=== PATIENT | male | born 1960 | race Hispanic/Latino ===

== ENCOUNTER 2022-01-07 19:05 | Emergency (ER) | payer SELFPAY ==
[2022-01-07] MEDS ORDERED: Ibuprofen 800 MG TAB ONE (20:41)
== END 2022-01-07 22:48 | disposition home or self-care (01) ==
LOC: ERS 19:05
DX: J10.1 Influenza due to other identified influenza virus with other respiratory manifestations (principal); M79.10 Myalgia, unspecified site; I10 Essential (primary) hypertension; E11.9 Type 2 diabetes mellitus without complications; Z79.84 Long term (current) use of oral hypoglycemic drugs; Z79.899 Other long term (current) drug therapy
CPT/HCPCS: 87081; 87430; 87804; 99283

== ENCOUNTER 2023-01-06 09:55 | Emergency (ER) | payer SELFPAY ==
[2023-01-06 10:36] LABS: #Basophils 0.1 thou/uL (0.0-0.2); #Eosinphils 0.2 thou/uL (0.0-0.7); #Lymphocytes 1.7 thou/uL (1.20-3.40); #Monocytes 0.5 thou/uL (0.11-0.59); #Neutrophils 2.8 thou/uL (1.40-6.50); %Eosinophils 4.1 % (0.0-10.0); %Lymphocytes 31.9 % (21.0-51.0); %Monocytes 8.7 % (0.0-10.0); %Neutrophils 54.3 % (42.0-75.0); Hemoglobin 14.3 g/dL (14.0-18.0); Mean Corpuscular HGB CONC 34.2 g/dL (32.0-36.0); Mean Corpuscular Hemoglobin 31.5 pg (27.0-31.0); Mean Corpuscular Volume 92.1 fl (78.0-98.0); Mean Platelet Volume 10.5 fL (7.4-10.4); Platelet Count 183 10x3/uL (130-400); RBC Distribution Width 11.6 % (11.5-14.5); Red Blood Cell (RBC) Count 4.53 mill/uL (4.70-6.10); White Blood Cell (WBC) Count 5.2 10x3/uL (4.8-10.8)
[2023-01-06 10:57] LABS: ALT (SGPT) 54 U/L (8-55); AST (SGOT) 36 U/L (5-34); Albumin 3.9 g/dL (3.4-4.8); Alkaline Phosphatase 82 U/L (40-110); Anion Gap 8 mmol/L (10-20); BUN (Urea Nitrogen) 17 mg/dL (8.4-25.7); Bilirubin, Total 0.6 mg/dL (0.2-1.2); Calc. Creatinine Clearance 0 mL/min (70-130); Calcium 8.9 mg/dL (7.8-10.44); Carbon Dioxide 26 mmol/L (23-31); Chloride 103 mmol/L (98-107); Estimated GFR 99; Globulin 3.3 g/dL (2.4-3.5); Glucose 213 mg/dL (80-115); Potassium 4.4 mmol/L (3.5-5.1); Protein, Total 7.2 g/dL (5.8-8.1); Sodium 133 mmol/L (136-145)
[2023-01-06 12:40] LABS: Bacteria/HPF None Seen HPF (None Seen); Bilirubin Negative (Negative); Blood, Urine Negative (Negative); Clarity Clear (Clear); Glucose, Urine (Dipstick) Greater than 1000 mg/dL (Negative); Ketone, Urine Negative (Negative); Leukocyte Negative Leu/uL (Negative); Nitrite Negative (Negative); Protein, Urine (Dipstick) 50 mg/dL (Neg-Trace); RBC/HPF 0-3 HPF (0-3); Specific Gravity, Urine 1.027 (1.002-1.036); Squamous Epithelial None Seen HPF (0-3); Urobilinogen Normal mg/dL (Less than 2); WBC/HPF 0-3 HPF (0-3); pH, Urine 5.5 (5.0-9.0)
[2023-01-06] MEDS ORDERED: cefTRIAXone\\ROCEPHIN 1 GM VIAL ONE (13:36)
[2023-01-06] MEDS ORDERED: Lidocaine 1% MPF 2 ML VIAL ONE (13:37)
== END 2023-01-06 13:58 | disposition home or self-care (01) ==
LOC: ERS 09:55
DX: E11.65 Type 2 diabetes mellitus with hyperglycemia (principal); L08.9 Local infection of the skin and subcutaneous tissue, unspecified; I10 Essential (primary) hypertension
CPT/HCPCS: 36415; 80053; 81003; 81015; 85025; 93005; 96372; J0696

== ENCOUNTER 2023-07-13 10:05 | Inpatient (IN) | payer SELFPAY ==
[2023-07-13 10:55] LABS: #Eosinphils 0.3 thou/uL (0.0-0.7); #Monocytes 0.6 thou/uL (0.11-0.59); #Neutrophils 4.2 thou/uL (1.40-6.50); %Basophils 0.6 % (0.0-1.0); %Eosinophils 4.2 % (0.0-10.0); %Lymphocytes 22.9 % (21.0-51.0); %Monocytes 9.3 % (0.0-10.0); %Neutrophils 62.8 % (42.0-75.0); Hematocrit 35.9 % (42.0-52.0); Hemoglobin 12.6 g/dL (14.0-18.0); Mean Corpuscular HGB CONC 35.1 g/dL (32.0-36.0); Mean Corpuscular Hemoglobin 30.7 pg (27.0-31.0); Mean Corpuscular Volume 87.3 fl (78.0-98.0); Mean Platelet Volume 12.4 fL (7.4-10.4); Platelet Count 207 10x3/uL (130-400); RBC Distribution Width 11.6 % (11.5-14.5); Red Blood Cell (RBC) Count 4.11 mill/uL (4.70-6.10); White Blood Cell (WBC) Count 6.7 10x3/uL (4.8-10.8)
[2023-07-13 11:17] LABS: ALT (SGPT) 17 U/L (8-55); AST (SGOT) 14 U/L (5-34); Albumin 3.4 g/dL (3.4-4.8); Alkaline Phosphatase 119 U/L (40-110); Anion Gap 14 mmol/L (10-20); BUN (Urea Nitrogen) 20 mg/dL (8.4-25.7); Bilirubin, Total 0.5 mg/dL (0.2-1.2); Calc. Creatinine Clearance 0 mL/min (70-130); Calcium 9.2 mg/dL (7.8-10.44); Carbon Dioxide 23 mmol/L (23-31); Chloride 94 mmol/L (98-107); Estimated GFR 90; Globulin 3.6 g/dL (2.4-3.5); Potassium 4.2 mmol/L (3.5-5.1); Sodium 127 mmol/L (136-145)
[2023-07-13 11:21] LABS: Glucose 450 mg/dL (80-115)
[2023-07-13] MEDS ORDERED: cefTRIAXone (ROCEPHIN) 1 GM VIAL ONE (11:58)
[2023-07-13 12:26] LABS: Actual Bicarbonate (HCO3v) 26.4 mEq/L (22-28); Base Excess 1.6 mEq/L (-2.0 to +3.0); Calcium, Ionized (venous) 1.16 mmol/L (1.16-1.32); Chloride (VBG) 96 mmol/L (98-106); Hematocrit-VBG 42 % (42.0-52.0); Hemoglobin (Hb) 14.2 g/dL (13.1-17.2); Potassium (VBG) 4.62 mmol/L (3.70-5.30); Sodium 131.5 mmol/L (133-146); pH (venous) 7.415 (7.32-7.43)
[2023-07-13 14:36] VITALS: BMI 21.9
[2023-07-13] MEDS ORDERED: Dextrose 50% Abboject 50 ML SYRINGE SLOW IVP PRN (14:42)
[2023-07-13] MEDS ORDERED: Dextrose 5% in Water 1,000 ML IV PRN (14:42)
[2023-07-13] MEDS ORDERED: HumaLOG 300 UNITS/3 ML VIAL SC PRN (14:42)
[2023-07-13] MEDS ORDERED: Glucagon 1 MG/ML KIT IM PRN (14:42)
[2023-07-13] MEDS ORDERED: Acetaminophen 325 MG TAB PO PRN (14:43)
[2023-07-13] MEDS ORDERED: Ondansetron PF 4 MG/2 ML Vial IVP PRN (14:43)
[2023-07-13] MEDS ORDERED: Ondansetron ODT 4 MG TAB PO PRN (14:43)
[2023-07-13] MEDS ORDERED: Lorazepam 1 MG TAB PO PRN (15:10)
[2023-07-13] MEDS ORDERED: Lorazepam 2 MG/ML VIAL IM PRN (15:10)
[2023-07-13] MEDS ORDERED: hydrALAZINE 20 MG/ML VIAL SLOW IVP PRN (15:11)
[2023-07-13] MEDS ORDERED: Electrolyte Replacement Protocol 1 EACH FS SCH (15:15)
[2023-07-13 15:21] LABS: Hemoglobin A1c 13.9 % (4.0-6.0)
[2023-07-13] MEDS: metFORMIN 500 MG TAB PO SCH (16:56)
[2023-07-13] MEDS: HumaLOG 300 UNITS/3 ML VIAL SC PRN (16:56)
[2023-07-13] MEDS: Thiamine HCl 200 MG/2 ML VIAL SLOW IVP SCH (16:56)
[2023-07-13 17:19] LABS: Magnesium 1.9 mg/dL (1.6-2.6)
[2023-07-13] MEDS: Folic Acid 1 MG TAB PO SCH (20:54)
[2023-07-13] MEDS: Multivit, Therapeutic 1 TAB PO SCH (20:54)
[2023-07-13] MEDS ORDERED: Magnesium 2 GM/50 ML(in water) 2 GM in Premix Bag 1 BAG IVPB SCH (21:00)
[2023-07-13] MEDS: Doxycycline 100 MG in Sodium Chloride 0.9% 100 ML IVPB SCH (21:25)
[2023-07-14] MEDS: HumaLOG 300 UNITS/3 ML VIAL SC PRN ×3 (05:31→16:35)
[2023-07-14 06:58] LABS: #Eosinphils 0.4 thou/uL (0.0-0.7); #Monocytes 0.6 thou/uL (0.11-0.59); #Neutrophils 4.3 thou/uL (1.40-6.50); %Basophils 0.5 % (0.0-1.0); %Eosinophils 5.5 % (0.0-10.0); %Lymphocytes 29.7 % (21.0-51.0); %Monocytes 8.1 % (0.0-10.0); %Neutrophils 56.1 % (42.0-75.0); Hematocrit 36.1 % (42.0-52.0); Hemoglobin 12.8 g/dL (14.0-18.0); Mean Corpuscular HGB CONC 35.5 g/dL (32.0-36.0); Mean Corpuscular Hemoglobin 30.3 pg (27.0-31.0); Mean Corpuscular Volume 85.5 fl (78.0-98.0); Mean Platelet Volume 12.3 fL (7.4-10.4); Platelet Count 200 10x3/uL (130-400); RBC Distribution Width 11.5 % (11.5-14.5); Red Blood Cell (RBC) Count 4.22 mill/uL (4.70-6.10); White Blood Cell (WBC) Count 7.6 10x3/uL (4.8-10.8)
[2023-07-14 07:25] LABS: Anion Gap 10 mmol/L (10-20); BUN (Urea Nitrogen) 15 mg/dL (8.4-25.7); Calc. Creatinine Clearance 91 mL/min (70-130); Carbon Dioxide 26 mmol/L (23-31); Chloride 102 mmol/L (98-107); Estimated GFR 101; Glucose 211 mg/dL (80-115); Potassium 3.7 mmol/L (3.5-5.1); Sodium 134 mmol/L (136-145)
[2023-07-14] MEDS: metFORMIN 500 MG TAB PO SCH ×2 (08:41→16:26)
[2023-07-14] MEDS: Doxycycline 100 MG in Sodium Chloride 0.9% 100 ML IVPB SCH ×2 (08:42→20:53)
[2023-07-14] MEDS: cefTRIAXone\\ROCEPHIN 1 GM in Sodium Chloride 0.9% 100 ML IVPB SCH (12:03)
[2023-07-14] MEDS ORDERED: Pioglitazone HCl 45 MG TAB PO SCH (13:15)
[2023-07-14] MEDS ORDERED: Lorazepam 1 MG TAB PO PRN (15:10)
[2023-07-14] MEDS: Thiamine HCl 200 MG/2 ML VIAL SLOW IVP SCH (16:26)
[2023-07-14] MEDS: Folic Acid 1 MG TAB PO SCH (20:54)
[2023-07-14] MEDS: Multivit, Therapeutic 1 TAB PO SCH (20:54)
[2023-07-14] MEDS ORDERED: hydrOXYzine 25 MG TAB PO PRN (23:05)
[2023-07-15 07:53] LABS: #Basophils 0.1 thou/uL (0.0-0.2); #Eosinphils 0.4 thou/uL (0.0-0.7); #Monocytes 0.7 thou/uL (0.11-0.59); %Basophils 0.7 % (0.0-1.0); %Eosinophils 5.3 % (0.0-10.0); %Lymphocytes 30.6 % (21.0-51.0); %Monocytes 8.9 % (0.0-10.0); %Neutrophils 54.4 % (42.0-75.0); Hematocrit 36.3 % (42.0-52.0); Hemoglobin 12.7 g/dL (14.0-18.0); Mean Corpuscular Hemoglobin 30.6 pg (27.0-31.0); Mean Corpuscular Volume 87.5 fl (78.0-98.0); Mean Platelet Volume 12.6 fL (7.4-10.4); Platelet Count 211 10x3/uL (130-400); RBC Distribution Width 11.6 % (11.5-14.5); Red Blood Cell (RBC) Count 4.15 mill/uL (4.70-6.10); White Blood Cell (WBC) Count 7.4 10x3/uL (4.8-10.8)
[2023-07-15 08:09] LABS: Anion Gap 12 mmol/L (10-20); BUN (Urea Nitrogen) 14 mg/dL (8.4-25.7); Calc. Creatinine Clearance 82 mL/min (70-130); Carbon Dioxide 23 mmol/L (23-31); Chloride 103 mmol/L (98-107); Estimated GFR 98; Glucose 179 mg/dL (80-115); Sodium 134 mmol/L (136-145)
[2023-07-15] MEDS: Pioglitazone HCl 45 MG TAB PO SCH (09:43)
[2023-07-15] MEDS: Doxycycline 100 MG in Sodium Chloride 0.9% 100 ML IVPB SCH ×2 (09:44→19:51)
[2023-07-15] MEDS: metFORMIN 500 MG TAB PO SCH ×2 (09:44→16:56)
[2023-07-15] MEDS: HumaLOG 300 UNITS/3 ML VIAL SC PRN ×2 (09:47→12:22)
[2023-07-15] MEDS: cefTRIAXone\\ROCEPHIN 1 GM in Sodium Chloride 0.9% 100 ML IVPB SCH (12:21)
[2023-07-15] MEDS ORDERED: Lorazepam 1 MG TAB PO PRN (15:10)
[2023-07-15] MEDS: Thiamine HCl 200 MG/2 ML VIAL SLOW IVP SCH (16:57)
[2023-07-15] MEDS: Folic Acid 1 MG TAB PO SCH (19:51)
[2023-07-15] MEDS: Multivit, Therapeutic 1 TAB PO SCH (19:51)
[2023-07-16 06:59] LABS: #Eosinphils 0.4 thou/uL (0.0-0.7); #Monocytes 0.8 thou/uL (0.11-0.59); #Neutrophils 3.4 thou/uL (1.40-6.50); %Basophils 0.6 % (0.0-1.0); %Lymphocytes 34.7 % (21.0-51.0); %Monocytes 11.3 % (0.0-10.0); %Neutrophils 48.1 % (42.0-75.0); Hematocrit 35.6 % (42.0-52.0); Hemoglobin 12.5 g/dL (14.0-18.0); Mean Corpuscular HGB CONC 35.1 g/dL (32.0-36.0); Mean Corpuscular Hemoglobin 30.9 pg (27.0-31.0); Mean Corpuscular Volume 87.9 fl (78.0-98.0); Mean Platelet Volume 11.8 fL (7.4-10.4); Platelet Count 228 10x3/uL (130-400); RBC Distribution Width 11.5 % (11.5-14.5); Red Blood Cell (RBC) Count 4.05 mill/uL (4.70-6.10); White Blood Cell (WBC) Count 7.2 10x3/uL (4.8-10.8)
[2023-07-16 07:24] LABS: Anion Gap 12 mmol/L (10-20); BUN (Urea Nitrogen) 15 mg/dL (8.4-25.7); Calc. Creatinine Clearance 75 mL/min (70-130); Carbon Dioxide 26 mmol/L (23-31); Chloride 102 mmol/L (98-107); Estimated GFR 96; Glucose 166 mg/dL (80-115); Sodium 136 mmol/L (136-145)
[2023-07-16 07:44] VITALS: BP 133/76; TEMP 98.3
[2023-07-16] MEDS: Pioglitazone HCl 45 MG TAB PO SCH (08:21)
[2023-07-16] MEDS: Doxycycline 100 MG in Sodium Chloride 0.9% 100 ML IVPB SCH (08:21)
[2023-07-16] MEDS: metFORMIN 500 MG TAB PO SCH (08:21)
[2023-07-16] MEDS ORDERED: Thiamine 100 MG TAB PO SCH (09:00)
[2023-07-16] MEDS: cefTRIAXone\\ROCEPHIN 1 GM in Sodium Chloride 0.9% 100 ML IVPB SCH (12:01)
[2023-07-16] MEDS ORDERED: Lorazepam 0.5 MG TAB PO PRN (15:10)
== END 2023-07-16 13:20 | disposition home or self-care (01) | DRG 603 ==
LOC: ERS 10:05 → T4-B 13:40 → OBSVTOIN 07-14 15:08
PROVIDERS: ADMIT Family Medicine; ATTEND Specialist
DX: L03.116 Cellulitis of left lower limb (principal); E11.9 Type 2 diabetes mellitus without complications; I10 Essential (primary) hypertension; F10.10 Alcohol abuse, uncomplicated; Z79.84 Long term (current) use of oral hypoglycemic drugs; Z90.49 Acquired absence of other specified parts of digestive tract
CPT/HCPCS: 36415; 36416; 80048; 80053; 82010; 82805; 83036; 83735; 85025; 85652; 86140; 87040; 96375; 96376; 97139; G0378; J0696; J1815; J3411; J3475; J3490

== ENCOUNTER 2024-08-22 19:15 | Inpatient (IN) | payer SELFPAY ==
[2024-08-22 20:09] LABS: #Basophils 0.07 10x3/uL (0.0-0.2); %Basophils 0.8 % (0.0-1.0); %Eosinophils 4.9 % (0.0-10.0); %Lymphocytes 23.5 % (21.0-51.0); %Monocytes 8.1 % (0.0-10.0); %Neutrophils 62.4 % (42.0-75.0); Hematocrit 31.3 % (42.0-52.0); Hemoglobin 10.9 g/dL (14.0-18.0); Mean Corpuscular HGB CONC 34.8 g/dL (32.0-36.0); Mean Corpuscular Hemoglobin 30.8 pg (27.0-31.0); Mean Corpuscular Volume 88.4 fL (78.0-98.0); Mean Platelet Volume 11.8 fL (7.4-10.4); Platelet Count 268 10x3/uL (130-400); RBC Distribution Width 11.5 % (11.5-14.5); Red Blood Cell (RBC) Count 3.54 mill/uL (4.70-6.10)
[2024-08-22] MEDS ORDERED: Sodium Chloride 0.9% 100 ML ONE (20:09)
[2024-08-22] MEDS ORDERED: Piperacillin/Tazobactam 4.5 GM VIAL ONE (20:09)
[2024-08-22 20:25] LABS: PTT 31.5 sec (22.9-36.1)
[2024-08-22 20:27] LABS: ALT (SGPT) 75 U/L (8-55); AST (SGOT) 44 U/L (5-34); Albumin 3.2 g/dL (3.4-4.8); Alkaline Phosphatase 191 U/L (40-110); Anion Gap 12 mmol/L (10-20); BUN (Urea Nitrogen) 35 mg/dL (8.4-25.7); Bilirubin, Total 0.4 mg/dL (0.2-1.2); Calc. Creatinine Clearance 0 mL/min (70-130); Calcium 9.1 mg/dL (7.8-10.44); Carbon Dioxide 26 mmol/L (23-31); Chloride 101 mmol/L (98-107); Estimated GFR 57; Globulin 3.9 g/dL (2.4-3.5); Glucose 430 mg/dL (80-115); Potassium 4.7 mmol/L (3.5-5.1); Protein, Total 7.1 g/dL (5.8-8.1); Sodium 134 mmol/L (136-145)
[2024-08-22] MEDS ORDERED: Insulin Regular, Human 100 UNIT/ML 10 ML VIAL ONE (20:38)
[2024-08-22] MEDS ORDERED: Acetaminophen 650 MG Suppository PR PRN (21:38)
[2024-08-22] MEDS ORDERED: Acetaminophen 325 MG TAB PO PRN (21:38)
[2024-08-22] MEDS ORDERED: Dextrose 50% Abboject 50 ML SYRINGE SLOW IVP PRN (21:40)
[2024-08-22] MEDS ORDERED: Dextrose 5% in Water 1,000 ML IV PRN (21:40)
[2024-08-22] MEDS ORDERED: Glucagon 1 MG/ML KIT IM PRN (21:40)
[2024-08-23] MEDS: Vancomycin (BATCH) 1.75 GM in Premix 1 BAG IVPB SCH (01:30)
[2024-08-23] MEDS: Sodium Chloride 0.9% 1,000 ML IV SCH (01:30)
[2024-08-23 01:53] VITALS: BMI 23.4
[2024-08-23] MEDS ORDERED: Piperacillin/Tazobactam 3.375 GM VIAL ONE (03:18)
[2024-08-23] MEDS ORDERED: Sodium Chloride 0.9% 100 ML ONE (03:18)
[2024-08-23] MEDS: Piperacillin/Tazobactam 3.375 GM in Sodium Chloride 0.9% 100 ML IVPB SCH (03:31)
[2024-08-23] MEDS: traMADol HCl 50 MG TAB PO PRN ×2 (06:39→21:07)
[2024-08-23 07:00] LABS: #Basophils 0.04 10x3/uL (0.0-0.2); %Basophils 0.4 % (0.0-1.0); %Eosinophils 4.8 % (0.0-10.0); %Lymphocytes 24.3 % (21.0-51.0); %Monocytes 8.3 % (0.0-10.0); %Neutrophils 61.8 % (42.0-75.0); Hematocrit 28.8 % (42.0-52.0); Hemoglobin 10.1 g/dL (14.0-18.0); Mean Corpuscular HGB CONC 35.1 g/dL (32.0-36.0); Mean Corpuscular Volume 88.3 fL (78.0-98.0); Mean Platelet Volume 11.4 fL (7.4-10.4); Platelet Count 227 10x3/uL (130-400); RBC Distribution Width 11.5 % (11.5-14.5); Red Blood Cell (RBC) Count 3.26 mill/uL (4.70-6.10)
[2024-08-23 07:13] LABS: Vancomycin, Random 14.4 ug/mL (See Comment)
[2024-08-23 07:14] LABS: Anion Gap 11 mmol/L (10-20); BUN (Urea Nitrogen) 28 mg/dL (8.4-25.7); Calc. Creatinine Clearance 73 mL/min (70-130); Calcium 8.8 mg/dL (7.8-10.44); Carbon Dioxide 26 mmol/L (23-31); Chloride 106 mmol/L (98-107); Estimated GFR 85; Glucose 228 mg/dL (80-115); Potassium 4.5 mmol/L (3.5-5.1); Sodium 138 mmol/L (136-145)
[2024-08-23] MEDS ORDERED: PROPOFOL 20 ML ONE (08:34)
[2024-08-23] MEDS ORDERED: Midazolam HCl 2 mg/2 ml Vial ONE (08:34)
[2024-08-23] MEDS ORDERED: fentaNYL PF 100 MCG/2 ML SYRINGE ONE (08:34)
[2024-08-23] MEDS ORDERED: Vancomycin 1 GM in Sodium Chloride 0.9% 250 ML 250 ML IVPB SCH (09:00)
[2024-08-23] MEDS ORDERED: Lidocaine 2% 6 ML (Jelly) SYR ONE (09:13)
[2024-08-23] MEDS ORDERED: Ondansetron PF 4 MG/2 ML Vial ONE (09:36)
[2024-08-23] MEDS ORDERED: PHENYLEPHRINE-NS 100 MCG/ML 10 ML SYRINGE ONE (09:37)
[2024-08-23 09:42] VITALS: BMI 23.4
[2024-08-23] MEDS ORDERED: Promethazine HCl 25 MG/ML VIAL IM PRN (10:04)
[2024-08-23] MEDS ORDERED: Ipratropium/Albuterol 3 ML NEB NEB PRN (10:04)
[2024-08-23] MEDS ORDERED: Insulin Regular, Human 100 UNIT/ML 10 ML VIAL SC PRN (10:04)
[2024-08-23] MEDS ORDERED: Ondansetron PF 4 MG/2 ML Vial IVP PRN (10:04)
[2024-08-23] MEDS: Famotidine 20 MG TAB PO SCH (11:16)
[2024-08-23] MEDS: Losartan 25 MG TAB PO SCH (11:16)
[2024-08-23] MEDS: Vancomycin 1 GM in Premix 1 BAG IVPB SCH (12:46)
[2024-08-23] MEDS: FLU (Fluarix Triv) TS24-25(6MOS UP)/PF 45 MCG/0.5 ML Syringe IM ONE (12:46)
[2024-08-23] MEDS: Insulin Lispro 100 UNIT/ML 10 ML VIAL SC PRN (13:21)
[2024-08-23] MEDS: Vancomycin HCl 750 MG in Sodium Chloride 0.9% 250 ML 250 ML IVPB SCH (14:10)
[2024-08-23] MEDS: hydrALAZINE 20 MG/ML VIAL SLOW IVP SCH (15:23)
[2024-08-23] MEDS: Rosuvastatin 20 MG TAB PO SCH (21:07)
[2024-08-24] MEDS: Morphine 2 MG/ML VIAL SLOW IVP PRN (00:06)
[2024-08-24] MEDS: Piperacillin/Tazobactam 3.375 GM VIAL ONE (09:16)
[2024-08-24 09:53] LABS: #Basophils 0.05 10x3/uL (0.0-0.2); %Basophils 0.5 % (0.0-1.0); %Eosinophils 5.8 % (0.0-10.0); %Lymphocytes 18.3 % (21.0-51.0); %Monocytes 7.7 % (0.0-10.0); %Neutrophils 67.4 % (42.0-75.0); Hemoglobin 10.5 g/dL (14.0-18.0); Mean Corpuscular Hemoglobin 31.2 pg (27.0-31.0); Mean Platelet Volume 12.1 fL (7.4-10.4); Platelet Count 223 10x3/uL (130-400); RBC Distribution Width 11.7 % (11.5-14.5); Red Blood Cell (RBC) Count 3.37 mill/uL (4.70-6.10)
[2024-08-24 10:16] LABS: ALT (SGPT) 636 U/L (8-55); AST (SGOT) 453 U/L (5-34); Albumin 2.9 g/dL (3.4-4.8); Alkaline Phosphatase 330 U/L (40-110); Anion Gap 11 mmol/L (10-20); BUN (Urea Nitrogen) 18 mg/dL (8.4-25.7); Bilirubin, Total 0.9 mg/dL (0.2-1.2); Calc. Creatinine Clearance 81 mL/min (70-130); Calcium 8.7 mg/dL (7.8-10.44); Carbon Dioxide 25 mmol/L (23-31); Chloride 102 mmol/L (98-107); Estimated GFR 96; Globulin 3.6 g/dL (2.4-3.5); Glucose 254 mg/dL (80-115); Potassium 4.1 mmol/L (3.5-5.1); Protein, Total 6.5 g/dL (5.8-8.1); Sodium 134 mmol/L (136-145)
[2024-08-24 14:43] LABS: ALT (SGPT) 596 U/L (8-55); AST (SGOT) 355 U/L (5-34); Alkaline Phosphatase 346 U/L (40-110); Bilirubin, Direct 0.3 mg/dL (0.1-0.3); Bilirubin, Total 0.9 mg/dL (0.2-1.2); Protein, Total 6.8 g/dL (5.8-8.1)
[2024-08-25 07:54] LABS: #Basophils 0.06 10x3/uL (0.0-0.2); %Basophils 0.7 % (0.0-1.0); %Lymphocytes 23.8 % (21.0-51.0); %Monocytes 11.6 % (0.0-10.0); %Neutrophils 57.7 % (42.0-75.0); Hematocrit 29.5 % (42.0-52.0); Hemoglobin 10.2 g/dL (14.0-18.0); Mean Corpuscular HGB CONC 34.6 g/dL (32.0-36.0); Mean Corpuscular Hemoglobin 30.8 pg (27.0-31.0); Mean Corpuscular Volume 89.1 fL (78.0-98.0); Platelet Count 218 10x3/uL (130-400); RBC Distribution Width 11.6 % (11.5-14.5); Red Blood Cell (RBC) Count 3.31 mill/uL (4.70-6.10)
[2024-08-25 08:07] LABS: Vancomycin, Random 22.4 ug/mL (See Comment)
[2024-08-25] MEDS: Doxycycline 100 MG CAP PO SCH (08:52)
[2024-08-25 09:25] LABS: ALT (SGPT) 451 U/L (8-55); AST (SGOT) 196 U/L (5-34); Alkaline Phosphatase 420 U/L (40-110); Anion Gap 11 mmol/L (10-20); BUN (Urea Nitrogen) 16 mg/dL (8.4-25.7); Bilirubin, Total 1.1 mg/dL (0.2-1.2); Calc. Creatinine Clearance 74 mL/min (70-130); Calcium 9.3 mg/dL (7.8-10.44); Carbon Dioxide 27 mmol/L (23-31); Chloride 102 mmol/L (98-107); Estimated GFR 87; Globulin 4.2 g/dL (2.4-3.5); Glucose 142 mg/dL (80-115); Potassium 3.8 mmol/L (3.5-5.1); Protein, Total 7.2 g/dL (5.8-8.1); Sodium 136 mmol/L (136-145)
[2024-08-26 06:16] LABS: #Basophils 0.05 10x3/uL (0.0-0.2); %Basophils 0.5 % (0.0-1.0); %Eosinophils 3.8 % (0.0-10.0); %Lymphocytes 26.9 % (21.0-51.0); %Monocytes 11.1 % (0.0-10.0); %Neutrophils 57.4 % (42.0-75.0); Hematocrit 32.2 % (42.0-52.0); Mean Corpuscular HGB CONC 34.2 g/dL (32.0-36.0); Mean Corpuscular Hemoglobin 30.6 pg (27.0-31.0); Mean Corpuscular Volume 89.7 fL (78.0-98.0); Mean Platelet Volume 11.8 fL (7.4-10.4); Platelet Count 229 10x3/uL (130-400); RBC Distribution Width 11.7 % (11.5-14.5); Red Blood Cell (RBC) Count 3.59 mill/uL (4.70-6.10)
[2024-08-26 06:31] LABS: Anion Gap 14 mmol/L (10-20); BUN (Urea Nitrogen) 15 mg/dL (8.4-25.7); Calc. Creatinine Clearance 74 mL/min (70-130); Calcium 9.4 mg/dL (7.8-10.44); Carbon Dioxide 25 mmol/L (23-31); Chloride 103 mmol/L (98-107); Estimated GFR 87; Glucose 112 mg/dL (80-115); Potassium 4.4 mmol/L (3.5-5.1); Sodium 138 mmol/L (136-145)
[2024-08-26] MEDS ORDERED: Heparin 10,000 UNITS/ 10 ML VIAL ONE (09:23)
[2024-08-26 09:58] LABS: ALT (SGPT) 409 U/L (8-55); AST (SGOT) 186 U/L (5-34); Albumin 3.1 g/dL (3.4-4.8); Alkaline Phosphatase 563 U/L (40-110); Bilirubin, Direct 0.4 mg/dL (0.1-0.3); Bilirubin, Total 0.8 mg/dL (0.2-1.2)
[2024-08-26] MEDS ORDERED: Iopamidol 370 76% 100 ML VIAL ONE (10:19)
[2024-08-27 05:03] LABS: #Basophils 0.04 10x3/uL (0.0-0.2); %Basophils 0.5 % (0.0-1.0); %Eosinophils 7.1 % (0.0-10.0); %Lymphocytes 28.1 % (21.0-51.0); %Monocytes 14.2 % (0.0-10.0); Hematocrit 28.2 % (42.0-52.0); Hemoglobin 9.9 g/dL (14.0-18.0); Mean Corpuscular HGB CONC 35.1 g/dL (32.0-36.0); Mean Corpuscular Hemoglobin 30.6 pg (27.0-31.0); Mean Platelet Volume 12.1 fL (7.4-10.4); Platelet Count 220 10x3/uL (130-400); RBC Distribution Width 11.5 % (11.5-14.5); Red Blood Cell (RBC) Count 3.24 mill/uL (4.70-6.10)
[2024-08-27 05:24] LABS: ALT (SGPT) 333 U/L (8-55); AST (SGOT) 227 U/L (5-34); Albumin 2.7 g/dL (3.4-4.8); Alkaline Phosphatase 756 U/L (40-110); Anion Gap 9 mmol/L (10-20); BUN (Urea Nitrogen) 15 mg/dL (8.4-25.7); Calc. Creatinine Clearance 70 mL/min (70-130); Calcium 9.2 mg/dL (7.8-10.44); Carbon Dioxide 31 mmol/L (23-31); Chloride 102 mmol/L (98-107); Estimated GFR 81; Glucose 144 mg/dL (80-115); Potassium 4.5 mmol/L (3.5-5.1); Protein, Total 6.7 g/dL (5.8-8.1); Sodium 137 mmol/L (136-145)
[2024-08-27 11:14] VITALS: BP 138/69; TEMP 98.3
== END 2024-08-27 15:45 | disposition home or self-care (01) | DRG 617 ==
LOC: SUATTDRO 19:15 → ERS 19:15 → ERHOLD 21:31 → SURG B 08-23 06:29
PROVIDERS: ADMIT Family Medicine; ATTEND Internal Medicine
PROC: 0Y6U0Z0 Detachment at Left 3rd Toe, Complete, Open Approach (ICD-10-PCS; 2024-08-23)
PROC: B4101ZZ Fluoroscopy of Abdominal Aorta using Low Osmolar Contrast (ICD-10-PCS; principal; 2024-08-26)
PROC: B41D1ZZ Fluoroscopy of Aorta and Bilateral Lower Extremity Arteries using Low Osmolar Contrast (ICD-10-PCS; 2024-08-26)
DX: E11.628 Type 2 diabetes mellitus with other skin complications (principal); E11.52 Type 2 diabetes mellitus with diabetic peripheral angiopathy with gangrene; I10 Essential (primary) hypertension; N17.9 Acute kidney failure, unspecified; Z79.899 Other long term (current) drug therapy; Z90.49 Acquired absence of other specified parts of digestive tract; L03.032 Cellulitis of left toe
CPT/HCPCS: 36246; 36415; 36416; 75625; 75710; 76705; 80048; 80053; 80076; 80202; 82390; 82565; 83605; 85025; 85610; 85730; 86015; 87040; 87070; 87205; 88305; 88311; 93005; 96365; 96366; 96367; 96375; 97139; C1760; C1769; C1894; J0360; J1644; J1815; J2250; J2272; J2405; J2543; J2704; J3370; J3370-JW; J7030; Q9967

== ENCOUNTER 2024-11-13 16:26 | Inpatient (IN) | payer SELFPAY ==
[~2024-11-13 16:26] MED LIST: Magnevist 469MG/ML 20 ML VIAL ONE
[2024-11-13 17:48] LABS: #Basophils 0.04 10x3/uL (0.0-0.2); %Basophils 0.5 % (0.0-1.0); %Eosinophils 3.6 % (0.0-10.0); %Lymphocytes 19.4 % (21.0-51.0); %Monocytes 8.4 % (0.0-10.0); %Neutrophils 68.1 % (42.0-75.0); Hematocrit 29.7 % (42.0-52.0); Hemoglobin 10.5 g/dL (14.0-18.0); Mean Corpuscular HGB CONC 35.4 g/dL (32.0-36.0); Mean Corpuscular Hemoglobin 30.4 pg (27.0-31.0); Mean Corpuscular Volume 86.1 fL (78.0-98.0); Mean Platelet Volume 11.7 fL (7.4-10.4); Platelet Count 296 10x3/uL (130-400); Red Blood Cell (RBC) Count 3.45 mill/uL (4.70-6.10)
[2024-11-13 18:02] LABS: CRP,High Sensitivity (Inhouse) 1.19 mg/dL (< or = 0.5)
[2024-11-13 18:03] LABS: ALT (SGPT) 18 U/L (8-55); AST (SGOT) 17 U/L (5-34); Albumin 3.6 g/dL (3.4-4.8); Alkaline Phosphatase 160 U/L (40-110); Anion Gap 14 mmol/L (10-20); BUN (Urea Nitrogen) 45 mg/dL (8.4-25.7); Bilirubin, Total 0.3 mg/dL (0.2-1.2); Calc. Creatinine Clearance 0 mL/min (70-130); Calcium 9.7 mg/dL (7.8-10.44); Carbon Dioxide 23 mmol/L (23-31); Chloride 104 mmol/L (98-107); Estimated GFR 35; Glucose 195 mg/dL (80-115); Protein, Total 8.6 g/dL (5.8-8.1); Sodium 136 mmol/L (136-145)
[2024-11-13] MEDS ORDERED: Ondansetron ODT 4 MG TAB PO PRN (19:08)
[2024-11-13] MEDS ORDERED: Dextrose 5% in Water 1,000 ML IV PRN (19:08)
[2024-11-13] MEDS ORDERED: Dextrose 50% Abboject 50 ML SYRINGE SLOW IVP PRN (19:08)
[2024-11-13] MEDS ORDERED: Glucagon 1 MG/ML KIT IM PRN (19:08)
[2024-11-13] MEDS ORDERED: Ondansetron PF 4 MG/2 ML Vial IVP PRN (19:08)
[2024-11-13] MEDS ORDERED: Insulin Lispro 100 UNIT/ML 10 ML VIAL SC PRN (19:08)
[2024-11-13] MEDS ORDERED: Cefepime 2 GM VIAL ONE (19:59)
[2024-11-13] MEDS ORDERED: Sodium Chloride 0.9% 100 ML ONE (19:59)
[2024-11-13] MEDS: Vancomycin (BATCH) 1.5 GM in Premix 1 BAG IVPB SCH (22:33)
[2024-11-13 23:18] VITALS: BMI 24.4
[2024-11-13] MEDS: Sodium Chloride 0.9% 1,000 ML IV SCH (23:36)
[2024-11-14] MEDS: Heparin 5,000 UNITS/ML VIAL SC SCH (00:20)
[2024-11-14] MEDS: Rosuvastatin 10 MG TAB PO SCH (00:20)
[2024-11-14 07:15] LABS: #Basophils Less than 0.03 10x3/uL (0.0-0.2); %Basophils 0.3 % (0.0-1.0); %Neutrophils 61.6 % (42.0-75.0); Hematocrit 23.5 % (42.0-52.0); Hemoglobin 8.1 g/dL (14.0-18.0); Mean Corpuscular HGB CONC 34.5 g/dL (32.0-36.0); Mean Platelet Volume 11.5 fL (7.4-10.4); Platelet Count 235 10x3/uL (130-400)
[2024-11-14 07:35] LABS: Anion Gap 11 mmol/L (10-20); BUN (Urea Nitrogen) 31 mg/dL (8.4-25.7); Calc. Creatinine Clearance 83 mL/min (70-130); Calcium 8.5 mg/dL (7.8-10.44); Carbon Dioxide 22 mmol/L (23-31); Chloride 110 mmol/L (98-107); Estimated GFR 95; Glucose 121 mg/dL (80-115); Potassium 4.5 mmol/L (3.5-5.1); Sodium 138 mmol/L (136-145); Vancomycin, Random 13.2 ug/mL (See Comment)
[2024-11-14 07:42] LABS: Hemoglobin A1c 9.6 % (4.0-6.0)
[2024-11-14] MEDS: Acetaminophen 325 MG TAB PO PRN (08:04)
[2024-11-14] MEDS: Losartan 25 MG TAB PO SCH (08:05)
[2024-11-14] MEDS: Cefepime 1 GM in Sodium Chloride 0.9% 100 ML IVPB SCH (08:06)
[2024-11-14] MEDS: Pioglitazone HCl 45 MG TAB PO SCH (09:38)
[2024-11-14] MEDS: glipiZIDE XL 5 mg ER.TAB PO SCH (09:38)
[2024-11-14] MEDS: Vancomycin 1 GM in Premix 1 BAG IVPB SCH (12:21)
[2024-11-14] MEDS: Insulin Lispro 100 UNIT/ML 10 ML VIAL SC PRN (12:21)
[2024-11-14 15:12] VITALS: BMI 24.4
[2024-11-14] MEDS: Cefepime 2 GM in Sodium Chloride 0.9% 100 ML IVPB SCH (20:36)
[2024-11-14] MEDS ORDERED: Vancomycin 1 GM in Premix 1 BAG IVPB SCH (21:00)
[2024-11-15 06:15] LABS: #Basophils 0.04 10x3/uL (0.0-0.2); %Basophils 0.6 % (0.0-1.0); %Eosinophils 4.6 % (0.0-10.0); %Lymphocytes 22.8 % (21.0-51.0); %Monocytes 10.9 % (0.0-10.0); %Neutrophils 60.8 % (42.0-75.0); Hematocrit 24.7 % (42.0-52.0); Hemoglobin 8.5 g/dL (14.0-18.0); Mean Corpuscular HGB CONC 34.4 g/dL (32.0-36.0); Mean Corpuscular Hemoglobin 29.8 pg (27.0-31.0); Mean Corpuscular Volume 86.7 fL (78.0-98.0); Mean Platelet Volume 11.5 fL (7.4-10.4); Platelet Count 214 10x3/uL (130-400); Red Blood Cell (RBC) Count 2.85 mill/uL (4.70-6.10)
[2024-11-15 06:31] LABS: Anion Gap 9 mmol/L (10-20); BUN (Urea Nitrogen) 21 mg/dL (8.4-25.7); Calc. Creatinine Clearance 86 mL/min (70-130); Carbon Dioxide 25 mmol/L (23-31); Chloride 107 mmol/L (98-107); Estimated GFR 96; Glucose 112 mg/dL (80-115); Sodium 137 mmol/L (136-145)
[2024-11-15] MEDS ORDERED: Bupivacaine PF 0.5% 30 ML VIAL ONE (06:31)
[2024-11-15] MEDS ORDERED: PROPOFOL 20 ML ONE (07:02)
[2024-11-15] MEDS ORDERED: fentaNYL PF 100 MCG/2 ML SYRINGE ONE (07:02)
[2024-11-15] MEDS ORDERED: ePHEDrine Sulfate 50 MG/10 ML VIAL ONE (07:46)
[2024-11-15] MEDS ORDERED: Vancomycin 1 GM VIAL ONE (07:57)
[2024-11-15] MEDS ORDERED: Ondansetron PF 4 MG/2 ML Vial ONE (08:16)
[2024-11-15] MEDS ORDERED: Ondansetron HCl/PF 4 MG/2 ML Vial IVP PRN (08:19)
[2024-11-15] MEDS ORDERED: Promethazine HCl 25 MG/ML VIAL IM PRN ×2 (08:19→08:22)
[2024-11-15] MEDS ORDERED: fentaNYL 50 mcg/mL 1 mL Vial SLOW IVP PRN (08:22)
[2024-11-15] MEDS ORDERED: Insulin Regular, Human 100 UNIT/ML 10 ML VIAL SC PRN (08:22)
[2024-11-15] MEDS: Morphine 2 MG/ML VIAL SLOW IVP PRN (09:26)
[2024-11-15] MEDS: traMADol HCl 50 MG TAB PO PRN (11:14)
[2024-11-16 05:25] LABS: Vancomycin, Random 27.1 ug/mL (See Comment)
[2024-11-16] MEDS: CEFAZOLIN 2 GM in Sodium Chloride 0.9% 100 ML IVPB SCH (13:59)
[2024-11-17] MEDS: Linezolid 600 MG TAB PO SCH ×2 (12:46→21:30)
[2024-11-17] MEDS: Acetaminophen 500 MG TAB PO SCH (18:14)
[2024-11-18 14:10] VITALS: BP 135/79; TEMP 98.4
== END 2024-11-18 14:04 | disposition home or self-care (01) | DRG 629 ==
LOC: ERS 16:26 → T4-A 18:44
PROVIDERS: ADMIT Student in an Organized Health Care Education/Training Program; ATTEND Hospitalist
PROC: 0QBR0ZZ Excision of Left Toe Phalanx, Open Approach (ICD-10-PCS; principal; 2024-11-15)
PROC: 0SBQ0ZZ Excision of Left Toe Phalangeal Joint, Open Approach (ICD-10-PCS; 2024-11-15)
DX: E11.69 Type 2 diabetes mellitus with other specified complication (principal); M86.172 Other acute osteomyelitis, left ankle and foot; E11.628 Type 2 diabetes mellitus with other skin complications; E11.51 Type 2 diabetes mellitus with diabetic peripheral angiopathy without gangrene; N17.9 Acute kidney failure, unspecified; E78.5 Hyperlipidemia, unspecified; B95.2 Enterococcus as the cause of diseases classified elsewhere; B95.61 Methicillin susceptible Staphylococcus aureus infection as the cause of diseases classified elsewhere; I10 Essential (primary) hypertension; E11.65 Type 2 diabetes mellitus with hyperglycemia; Z90.49 Acquired absence of other specified parts of digestive tract; Z79.84 Long term (current) use of oral hypoglycemic drugs; Z79.899 Other long term (current) drug therapy; Z79.4 Long term (current) use of insulin
CPT/HCPCS: 36415; 36416; 80048; 80053; 80202; 82565; 83036; 83605; 85025; 86141; 87040; 87070; 87076; 87077; 87186; 87205; 96361; 96374; 96375; 97139; J0665; J0692; J1644; J1815; J2272; J2405; J2704; J3370; J7030

== ENCOUNTER 2025-03-28 18:45 | Emergency (ER) | payer MEDICAID, SELFPAY | END 2025-03-28 20:09 | disposition home or self-care (01) | LOC: ERS 18:45 | DX: L03.116 Cellulitis of left lower limb (principal); L03.032 Cellulitis of left toe; E11.9 Type 2 diabetes mellitus without complications; I10 Essential (primary) hypertension | CPT/HCPCS: 99282 ==